=== PATIENT | male | born 1985 | race Caucasian/White ===

== ENCOUNTER 2022-12-18 10:44 | Emergency (ER) | payer OTHER ==
[~2022-12-18] VITALS: Ht 175.3 cm; Wt 88.0 kg
[2022-12-18 11:00] VITALS: BP 159/67
[2022-12-18] MEDS ORDERED: LIDOcaine 1% W/epiNEPHrine 1:100,000 20ml vial SQ STA (11:27)
[2022-12-18] MEDS ORDERED: tetanus & diphtheria toxoid (Td) vaccine 0.5ml IMVAC ONE (11:45)
[2022-12-18] MEDS ORDERED: TETanus/Pertussis (Acell)/Diphther VAC/PF (Tdap-Adult) 0.5ml syringe IMVAC ONE (12:25)
[2022-12-18] MEDS ORDERED: HYDR-3972 PO (12:50)
--- NOTE | 2022-12-18 12:54 | NUR ---
PT TDAP UPDATED DURING ER VISIT.
== END 2022-12-18 13:04 | disposition home or self-care (01) ==
LOC: ER 10:45
DX: S61.411A Laceration without foreign body of right hand, initial encounter (principal); Z88.8 Allergy status to other drugs, medicaments and biological substances; X58.XXXA Exposure to other specified factors, initial encounter; Y93.9 Activity, unspecified; Y92.89 Other specified places as the place of occurrence of the external cause; Y99.8 Other external cause status
CPT/HCPCS: 12002; 29125; 73120; 90471; 90715; 99283; A6258; A6449

== ENCOUNTER 2022-12-27 08:22 | Emergency (ER) | payer OTHER ==
[~2022-12-27] VITALS: Ht 172.7 cm; Wt 136.8 kg
[2022-12-27 08:25] VITALS: BP 158/103
== END 2022-12-27 09:07 | disposition home or self-care (01) ==
LOC: ER 08:23
DX: M79.602 Pain in left arm (principal); Z79.899 Other long term (current) drug therapy
CPT/HCPCS: 99281